=== PATIENT | female | born 1950 | race Caucasian/White ===

== ENCOUNTER → 2018-06-04 11:41 | Outpatient (CLI) | payer MEDICARE, OTHER, SELFPAY ==
--- NOTE | 2018-06-04 | DI.MG.S_ITS ---
BILATERAL DIGITAL SCREENING MAMMOGRAM 3D/2D WITH CAD: 06/04/2018 CLINICAL: Routine screening. Family history of breast cancer. Comparison is made to exams dated: 04/24/2017 mammogram, 04/06/2017 mammogram - [facility], 01/05/2014 mammogram, and 09/03/2012 mammogram - [facility]. There are scattered fibroglandular elements in both breasts. Current study was also evaluated with a Computer Aided Detection (CAD) system. No significant masses, calcifications, or other findings are seen in either breast. There has been no significant interval change. IMPRESSION: NEGATIVE There is no mammographic evidence of malignancy. A 1 year screening mammogram is recommended. This exam was interpreted at Station ID: [id number]. NOTE: For mammograms, a report in lay terms will be sent to the patient. Approximately 15% of breast malignancies will not be visualized mammographically. In the management of a palpable breast mass, a negative mammogram must not discourage biopsy of a clinically suspicious lesion. Electronically Signed By: Parth porras/ruth:06/06/2018 02:57:34 letter sent: Normal Exam ACR BI-RADS Category 1: Negative [id number]
== END ==
PROVIDERS: PCP Family Medicine; Visit Provider Family Medicine
DX: Z12.31 Encounter for screening mammogram for malignant neoplasm of breast (principal); Z80.3 Family history of malignant neoplasm of breast
CPT/HCPCS: 77063; 77067

== ENCOUNTER → 2018-12-16 12:11 | Outpatient (CLI) | payer MEDICARE, OTHER, SELFPAY ==
--- NOTE | 2018-12-16 | DI.CT.S_ITS ---
PROCEDURE: CT HEAD/BRAIN WO CON INDICATIONS: HEAD TRAUMA TECHNIQUE: Noncontrast 4.5 mm thick angled axial sections acquired from the foramen magnum to the vertex, with coronal and sagittal reformats. For radiation dose reduction, the following was used: automated exposure control, adjustment of mA and/or kV according to patient size. COMPARISON: None. FINDINGS: Image quality: Excellent. CSF spaces: Basal cisterns are patent. No extra-axial fluid collections. The ventricles are symmetric in size and shape. Brain: No intracranial bleeds or masses. There is cerebral volume loss for age, with resultant ventricular and sulcal prominence. There are periventricular and deep white matter chronic small vessel ischemic changes. There is intracranial internal carotid artery atherosclerosis. Skull and face: Calvarium and visualized facial bones appear intact, without suspicious lesions. Sinuses: Mild right maxillary sinus disease IMPRESSION: No acute intracranial process. Mild right maxillary sinus disease. Dictated by: Chivo Lovell M.D. on 12/16/2018 at 12:43 Approved by: Chivo Lovell M.D. on 12/16/2018 at 12:49
== END ==
PROVIDERS: PCP Family Medicine; Visit Provider Family Medicine
DX: S09.90XA Unspecified injury of head, initial encounter (principal); J32.0 Chronic maxillary sinusitis; I65.21 Occlusion and stenosis of right carotid artery
CPT/HCPCS: 70450

== ENCOUNTER 2018-12-31 09:00 | Outpatient (RCR) | payer MEDICARE, OTHER, SELFPAY ==
--- NOTE | 2018-12-21 17:25 | PT.OIE ---
Current Diagnoses Tension-type headache, unspecified, not intractable (12/21/18) Concussion without loss of consciousness, initial encounter (12/21/18) Provider Visit Care Team Role Provider Type Desiree Mcghee MD Attending Provider Physician Primary Care Provider Specialty: Family Practice Address: [address] [place] [address], [id number] Email: Physical Therapy Initial Evaluation PT-OP-A Visit Information Start: 12/21/18 12:11 Freq: Status: Active Protocol: Document 12/21/18 13:44 EA (Rec: 12/21/18 14:34 EA [id number]) Out-Patient Physical Therapy Visit Information Visit Information Visit Type Initial Evaluation Visit Start Time 09:45 Visit Stop Time 10:30 Total Visit Minutes 40 Visit Number 1 Number of PACS ADMINISTRATOR Visits 0 PT-OP-B Current Condition Start: 12/21/18 12:11 Freq: Status: Active Protocol: Document 12/21/18 14:34 EA (Rec: 12/21/18 14:58 EA [id number]) Current Condition History of Current Condition Onset Date 2 wks ago Current Complaints Posterior neck pain History of Current Condition Present condition started 2 weeks ago after she slipped and fell backward on the grass field hitting her head on grass; states CT performed with no significant injury. Pt reports pain meds and rest improved her neck a little bit . Pt denies tingling sensation to both arm and no sharp pain but mostly neck tightness. Prior Treatments and Tests Recent CT scan with no significant injury Future Testing and Treatments Planned None identifiable Treatment Goals Patient/Caregiver Goals Pt wants to get rid of the pain and stiffness on the neck and Prior Functional Status Baseline Function- ADL's Independent Baseline Function- Mobility Independent Baseline Function- Gait no limitation Baseline Function- Work/School retired Baseline Function- Recreation/Hobbies No limitation with mobility Current Functional Impairments (Reported) Functional Limitations- ADL's Independent with no difficulty except activities that requires head turning, looking up and down which she c/o decreased tolerance due to neck pain with stiffness and headache. Functional Limitations- Mobility/Gait independent Functional Limitations- Work/School retired Functional Limitations- Recreation/ Decreased tolerance to driving Hobbies , reading, and long distance walking. PT-OP-C Subjective Start: 12/21/18 12:11 Freq: Status: Active Protocol: Document 12/21/18 14:34 EA (Rec: 12/21/18 14:58 EA [id number]) OP-PT Subjective Patient Comments Patient Comments Pt reports neck cracking sounds with no pain increased after the fall. Patient Reported Progress Improving Patient Questionnaires Neck Disability Index NDI Score 12 Neck Disability Index Impairment 20 to 39% Impaired (Score 10- 19) PT-OP-F Manual Assessment Start: 12/21/18 12:11 Freq: Status: Active Protocol: Document 12/21/18 14:34 EA (Rec: 12/21/18 14:58 EA [id number]) Manual Assessments Soft Tissue Assessment Soft Tissue Mobility Assessment Tightness to both scalenes, SCM, LS and postior neck muscles. PT-OP-J Posture/Palpation/Skin Start: 12/21/18 12:11 Freq: Status: Active Protocol: Document 12/21/18 14:34 EA (Rec: 12/21/18 14:58 EA [id number]) Posture Evaluation Position Standing Evaluation View Lateral Head/C-Spine Posture C-Spine Flattened Scapula Posture (L) Protracted (R) Protracted Arm Posture (L) Internally Rotated (R) Internally Rotated Comments Posture Comments Moderate fwd head with decreased cervical lordosis posture Palpation Assessment Location One Palpation Location Posterior neck muscles, sub- occipital mucles, SCM, scalene , traps Palpation Findings Soft Tissue Tightness Tenderness PT-OP-K Range of Motion Start: 12/21/18 12:11 Freq: Status: Active Protocol: Document 12/21/18 14:34 EA (Rec: 12/21/18 14:58 EA [id number]) Cervical Spine Range of Motion Cervical Spine Active Percentage Testing Position Sitting Flexion 85 Extension 75 Rotation Left 75 Rotation Right 75 Lateral Flexion Left 85 Lateral Flexion Right 85 ROM Limitations Soft Tissue Tightness Pain PT-OP-L Special Tests Start: 12/21/18 12:11 Freq: Status: Active Protocol: Document 12/21/18 14:34 EA (Rec: 12/21/18 14:58 EA [id number]) Special Tests Cervical Spine Special Tests Foraminal Compression Test Results - Other- 1 Test Results Cervical quadrant test Comments + facets to left side at C5-C6 Vertebral Artery Test Results - PT-OP-M Strength Start: 12/21/18 12:11 Freq: Status: Active Protocol: Document 12/21/18 14:34 EA (Rec: 12/21/18 14:58 EA [id number]) Cervical Spine Strength Cervical Spine Manual Muscle Testing Testing Position Supine Flexion (C1-2) 4- Good- Extension 3+ Fair+ Rotation Left 4- Good- Rotation Right 4- Good- Lateral Flexion Left (C3) 3+ Fair+ Lateral Flexion Right (C3) 3+ Fair+ PT-OP-Q Treatments Start: 12/21/18 12:11 Freq: Status: Active Protocol: Document 12/21/18 13:44 EA (Rec: 12/21/18 14:34 EA [id number]) Manual Therapy Treatment Soft Tissue Mobilization 1 Body Location posterior neck muscle Mobilization Type Myofascial Release Rolling Sustained Pressure Intensity/Depth Superficial Body Position Supine Manual Traction Cervical Details on/off Body Position Supine Reps/Duration x 10 reps Comments neutral cervical flexion Self-Care/Home Management Treatment Education Patient Education Home Exercise Program Joint Protection Pain Management Posture Safety PT-OP-T Assessment and Plan Start: 12/21/18 12:11 Freq: Status: Active Protocol: Document 12/21/18 13:44 EA (Rec: 12/21/18 14:34 EA [id number]) Physical Therapy Assessment Rehab Potential Rehabilitation Potential Good Evaluation Complexity Number of Personal Factors/Comorbidities 1-2 Number of Body Systems Impaired 1-2 Clinical Presentation at Evaluation Stable Impairments Impairments Activity Tolerance Pain Posture ROM Soft Tissue Mobility Strength Goals Four Impairment impaired psoture Concrete Mixer Goal (LTG) Patient will exhibit near to normal posture LTG Duration 4 wks Three Impairment Sleeping difficulty due to neck discomfort Group Home Goal (LTG) Patient will sleep > 6 hours without neck discomfort LTG Duration 4 wks Two Impairment Moderately difficulty in driving Group Home Goal (LTG) Patient will drive without difficulty in driving her car LTG Duration 4 wks One Impairment NDI score 12/50 Concrete Mixer Goal (LTG) NDI score of <8/50 LTG Duration 4 wks Assessment Summary Assessment Pleasant 68 y/o F patient with no acute distress with referring diagnosis of headache and concussion. Today patient exhibited impaired cervical ROM, cervical muscle weakness, abnormal neck posture and decreased tolerance to activities in standing and sitting. Assessment reveals decreased posterior neck muscles, scalenes, LS and SCM flexibility, left C5-C6 facets joint dysfunction. Due to above mentioned dysfunction, patient is impaired to function fully. She will benefit with skilled PT to reach highest functional level . Physical Therapy Plan Frequency and Duration Frequency of Treatment 2x/Week Duration of Treatment 6 wks Plan of Care Start Date 12/21/18 Plan of Care End Date 02/01/19 Therapeutic Interventions Therapeutic Interventions Home Exercise Program Joint Mobilizations Manual Therapy Patient/Caregiver Education Self-Care/Home Management Soft Tissue Mobilization Taping Therapeutic Activities Therapeutic Exercises Modalities Cold Pack/Ice Massage Electric Stimulation Hot Packs Ultrasound Next Visit Focus/Plan Next Note Type Treatment Note
--- NOTE | 2018-12-21 17:30 | PT.OPPOC ---
Current Diagnoses Tension-type headache, unspecified, not intractable (12/21/18) Concussion without loss of consciousness, initial encounter (12/21/18) Provider Visit Care Team Role Provider Type Desiree Mcghee MD Attending Provider Physician Primary Care Provider Specialty: Family Practice Address: [address] [place] [address], [id number] Email: Plan Of Care PT-OP-T Assessment and Plan Start: 12/21/18 12:11 Freq: Status: Active Protocol: Document 12/21/18 13:44 EA (Rec: 12/21/18 14:34 EA [id number]) Physical Therapy Assessment Rehab Potential Rehabilitation Potential Good Evaluation Complexity Number of Personal Factors/Comorbidities 1-2 Number of Body Systems Impaired 1-2 Clinical Presentation at Evaluation Stable Impairments Impairments Activity Tolerance Pain Posture ROM Soft Tissue Mobility Strength Goals Four Impairment impaired posture Pin Drafting Machine Tender Goal (LTG) Patient will exhibit near to normal posture LTG Duration 4 wks Three Impairment Sleeping difficulty due to neck discomfort Mcfp Goal (LTG) Patient will sleep > 6 hours without neck discomfort LTG Duration 4 wks Two Impairment Moderately difficulty in driving Mcfp Goal (LTG) Patient will drive without difficulty in driving her car LTG Duration 4 wks One Impairment NDI score 12/50 Mcfp Goal (LTG) NDI score of <8/50 LTG Duration 4 wks Assessment Summary Assessment Pleasant 68 y/o F patient with no acute distress with referring diagnosis of headache and concussion. Today patient exhibited impaired cervical ROM, cervical muscle weakness, abnormal neck posture and decreased tolerance to activities in standing and sitting. Assessment reveals decreased posterior neck muscles, scalenes, LS and SCM flexibility, left C5-C6 facets joint dysfunction. Due to above mentioned dysfunction, patient is impaired to function fully. She will benefit with skilled PT to reach highest functional level . Physical Therapy Plan Frequency and Duration Frequency of Treatment 2x/Week Duration of Treatment 6 wks Plan of Care Start Date 12/21/18 Plan of Care End Date 02/01/19 Therapeutic Interventions Therapeutic Interventions Home Exercise Program Joint Mobilizations Manual Therapy Patient/Caregiver Education Self-Care/Home Management Soft Tissue Mobilization Taping Therapeutic Activities Therapeutic Exercises Modalities Cold Pack/Ice Massage Electric Stimulation Hot Packs Ultrasound Next Visit Focus/Plan Next Note Type Treatment Note Plan of Care Dates Plan of Care Start Date 12/21/18 Plan of Care End Date 02/01/19 Please Sign and Return: I have reviewed this Plan of Care and certify that the skilled therapy services above are required to meet the patient?s needs. Physician Signature Date Printed Name and Credentials Clinical Instructor Signature Printed Name and Credentials
--- NOTE | 2018-12-23 15:30 | PT.OTN ---
Current Diagnoses Tension-type headache, unspecified, not intractable (12/23/18) Concussion without loss of consciousness, initial encounter (12/23/18) Physical Therapy Treatment Note PT-OP-A Visit Information Start: 12/21/18 12:11 Freq: Status: Active Protocol: Document 12/23/18 09:51 LRN (Rec: 12/23/18 10:34 LRN [id number]) Out-Patient Physical Therapy Visit Information Visit Information Visit Type Treatment Note Visit Start Time 09:51 Visit Stop Time 10:30 Total Visit Minutes 39 Visit Number 2 Number of AUTOMOTIVE PARTS COUNTER ASSOCIATE Visits 0 PT-OP-B Current Condition Start: 12/21/18 12:11 Freq: Status: Active Protocol: Document 12/21/18 14:34 EA (Rec: 12/21/18 14:58 EA [id number]) Current Condition History of Current Condition Onset Date 2 wks ago Current Complaints Posterior neck pain History of Current Condition Present condition started 2 weeks ago after she slipped and fell backward on the grassfield hitting her head on grass; states CT performed with no significant injury. Pt reports pain meds and rest improved her neck a little bit . Pt denies tingling sensation to both arm and no sharp pain but mostly neck tightness. Prior Treatments and Tests Recent CT scan with no significant injury Future Testing and Treatments Planned None identifiable Treatment Goals Patient/Caregiver Goals Pt wants to get rid of the pain and stiffness on the neck and Prior Functional Status Baseline Function- ADL's Independent Baseline Function- Mobility Independent Baseline Function- Gait no limitation Baseline Function- Work/School retired Baseline Function- Recreation/Hobbies No limitation with mobility Current Functional Impairments (Reported) Functional Limitations- ADL's Independent with no difficulty except activities that requires head turning, looking up and down which she c/o decreased tolerance due to neck pain with stiffness and headache. Functional Limitations- Mobility/Gait independent Functional Limitations- Work/School retired Functional Limitations- Recreation/ Decreased tolerance to driving Hobbies , reading, and long distance walking. PT-OP-C Subjective Start: 12/21/18 12:11 Freq: Status: Active Protocol: Document 12/23/18 09:51 LRN (Rec: 12/23/18 10:06 LRN [id number]) OP-PT Subjective Patient Comments Patient Comments Better. PT-OP-F Manual Assessment Start: 12/21/18 12:11 Freq: Status: Active Protocol: Document 12/21/18 14:34 EA (Rec: 12/21/18 14:58 EA [id number]) Manual Assessments Soft Tissue Assessment Soft Tissue Mobility Assessment Tightness to both scalenes, SCM, LS and postior neck muscles. PT-OP-J Posture/Palpation/Skin Start: 12/21/18 12:11 Freq: Status: Active Protocol: Document 12/21/18 14:34 EA (Rec: 12/21/18 14:58 EA [id number]) Posture Evaluation Position Standing Evaluation View Lateral Head/C-Spine Posture C-Spine Flattened Scapula Posture (L) Protracted (R) Protracted Arm Posture (L) Internally Rotated (R) Internally Rotated Comments Posture Comments Moderate fwd head with decreased cervical lordosis posture Palpation Assessment Location One Palpation Location Posterior neck muscles, sub- occipital mucles, SCM, scalene , traps Palpation Findings Soft Tissue Tightness Tenderness PT-OP-K Range of Motion Start: 12/21/18 12:11 Freq: Status: Active Protocol: Document 12/21/18 14:34 EA (Rec: 12/21/18 14:58 EA [id number]) Cervical Spine Range of Motion Cervical Spine Active Percentage Testing Position Sitting Flexion 85 Extension 75 Rotation Left 75 Rotation Right 75 Lateral Flexion Left 85 Lateral Flexion Right 85 ROM Limitations Soft Tissue Tightness Pain PT-OP-L Special Tests Start: 12/21/18 12:11 Freq: Status: Active Protocol: Document 12/21/18 14:34 EA (Rec: 12/21/18 14:58 EA [id number]) Special Tests Cervical Spine Special Tests Foraminal Compression Test Results - Other- 1 Test Results Cervical quadrant test Comments + facets to left side at C5-C6 Vertebral Artery Test Results - PT-OP-M Strength Start: 12/21/18 12:11 Freq: Status: Active Protocol: Document 12/21/18 14:34 EA (Rec: 12/21/18 14:58 EA [id number]) Cervical Spine Strength Cervical Spine Manual Muscle Testing Testing Position Supine Flexion (C1-2) 4- Good- Extension 3+ Fair+ Rotation Left 4- Good- Rotation Right 4- Good- Lateral Flexion Left (C3) 3+ Fair+ Lateral Flexion Right (C3) 3+ Fair+ PT-OP-Q Treatments Start: 12/21/18 12:11 Freq: Status: Active Protocol: Document 12/23/18 09:51 LRN (Rec: 12/23/18 10:34 LRN [id number]) Therapeutic Exercises Supine Exercises PROM shoulders Supine Exercise Name PROM of shoulders Side bilateral Reps/Minutes 3' Sitting Exercises C. Flex Sitting Exercise Name Flexion Reps/Minutes 6x 10 sec holds C. rot Sitting Exercise Name Active C. rot stretch Side bilateral Reps/Minutes 6x 10 sec hold Manual Therapy Treatment Soft Tissue Mobilization 1 Body Location posterior neck muscle Mobilization Type Myofascial Release Rolling Sustained Pressure Intensity/Depth Superficial Body Position Supine Comments L>R Manual Traction Cervical Details on/off Body Position Supine Reps/Duration x 10 reps Comments neutral cervical flexion, SB PT-OP-R Modalities Start: 12/21/18 12:11 Freq: Status: Active Protocol: Document 12/23/18 09:51 LRN (Rec: 12/23/18 10:34 LRN [id number]) Ultrasound Therapy Treatment Neck/Shoulder Treatment Duration (minutes) 8 Patient Position Prone Coupling Medium Ultrasound Gel Applicator Size (cm2) 5 Mode Setting Pulsed Duty Cycle 50% Intensity Setting (w/cm2) 1.5 Comments Tonny C/S paraspinals and upper trap PT-OP-T Assessment and Plan Start: 12/21/18 12:11 Freq: Status: Active Protocol: Document 12/23/18 09:51 LRN (Rec: 12/23/18 13:29 LRN [id number]) Physical Therapy Assessment Assessment Summary Assessment Pt with referring diagnosis of headache and concussion with mild impaired cervical ROM, cervical muscle weakness, improved neck posture and decreased tolerance to activities in standing and sitting. Prior assessment showed decreased posterior neck muscles, scalenes, LS and SCM flexibility, but improved mobility noted with ROM exercises. Left C5-C6 facets joint dysfunction not reassessed. If pain is down, might start ex next treatment. Physical Therapy Plan Frequency and Duration Frequency of Treatment 2x/Week Duration of Treatment 6 wks Plan of Care Start Date 12/21/18 Plan of Care End Date 02/01/19 Next Visit Focus/Plan Next Note Type Treatment Note Next Visit Plan Continue US to neck/upper shoulders, manual therapy to C /S, Cervical ROM. Start strengthening if pain remains down.
--- NOTE | 2018-12-31 09:00 | PT.OTN ---
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 Pt reports pain meds and rest improved her neck a little bit . Pt denies tingling sensation to both arm and no sharp pain but mostly neck tightness. Prior Treatments and Tests Recent CT scan with no significant injury Future Testing and Treatments Planned None identifiable Treatment Goals Patient/Caregiver Goals Pt wants to get rid of the pain and stiffness on the neck and Prior Functional Status Baseline Function- ADL's Independent Baseline Function- Mobility Independent Baseline Function- Gait no limitation Baseline Function- Work/School retired Baseline Function- Recreation/Hobbies No limitation with mobility Current Functional Impairments (Reported) Functional Limitations- ADL's Independent with no difficulty except activities that requires head turning, looking up and down which she c/o decreased tolerance due to neck pain with stiffness and headache. Functional Limitations- Mobility/Gait independent Functional Limitations- Work/School retired Functional Limitations- Recreation/ Decreased tolerance to driving Hobbies , reading, and long distance walking. PT-OP-C Subjective Start: 12/21/18 12:11 Freq: Status: Active Protocol: Document 12/31/18 09:00 RCC (Rec: 12/31/18 16:32 RCC [email or web address]) OP-PT Subjective Patient Comments Patient Comments Pt feels like the only time her neck pain is aggravated is when her dog pulls her on the leash. Overall, she is much improved and working on her HEP PT-OP-F Manual Assessment Start: 12/21/18 12:11 Freq: Status: Active Protocol: Document 12/21/18 14:34 EA (Rec: 12/21/18 14:58 EA [id number]) Manual Assessments Soft Tissue Assessment Soft Tissue Mobility Assessment Tightness to both scalenes, SCM, LS and postior neck muscles. PT-OP-J Posture/Palpation/Skin Start: 12/21/18 12:11 Freq: Status: Active Protocol: Document 12/21/18 14:34 EA (Rec: 12/21/18 14:58 EA [id number]) Posture Evaluation Position Standing Evaluation View Lateral Head/C-Spine Posture C-Spine Flattened Scapula Posture (L) Protracted (R) Protracted Arm Posture (L) Internally Rotated (R) Internally Rotated Comments Posture Comments Moderate fwd head with decreased cervical lordosis posture Palpation Assessment Location One Palpation Location Posterior neck muscles, sub- occipital mucles, SCM, scalene , traps Palpation Findings Soft Tissue Tightness Tenderness PT-OP-K Range of Motion Start: 12/21/18 12:11 Freq: Status: Active Protocol: Document 12/21/18 14:34 EA (Rec: 12/21/18 14:58 EA [id number]) Cervical Spine Range of Motion Cervical Spine Active Percentage Testing Position Sitting Flexion 85 Extension 75 Rotation Left 75 Rotation Right 75 Lateral Flexion Left 85 Lateral Flexion Right 85 ROM Limitations Soft Tissue Tightness Pain PT-OP-L Special Tests Start: 12/21/18 12:11 Freq: Status: Active Protocol: Document 12/21/18 14:34 EA (Rec: 12/21/18 14:58 EA [id number]) Special Tests Cervical Spine Special Tests Foraminal Compression Test Results - Other- 1 Test Results Cervical quadrant test Comments + facets to left side at C5-C6 Vertebral Artery Test Results - PT-OP-M Strength Start: 12/21/18 12:11 Freq: Status: Active Protocol: Document 12/21/18 14:34 EA (Rec: 12/21/18 14:58 EA [id number]) Cervical Spine Strength Cervical Spine Manual Muscle Testing Testing Position Supine Flexion (C1-2) 4- Good- Extension 3+ Fair+ Rotation Left 4- Good- Rotation Right 4- Good- Lateral Flexion Left (C3) 3+ Fair+ Lateral Flexion Right (C3) 3+ Fair+ PT-OP-Q Treatments Start: 12/21/18 12:11 Freq: Status: Active Protocol: Document 12/31/18 09:00 [facility] (Rec: 12/31/18 16:32 [facility] [id number]) Therapeutic Exercises Sitting Exercises levator and UT stretching Side left Reps/Minutes 3x30 sec each Comments sitting on hand C. Flex Sitting Exercise Name Flexion Reps/Minutes 6x 10 sec holds C. rot Sitting Exercise Name Active C. rot stretch Side bilateral Reps/Minutes 6x 10 sec hold Standing Exercises Scapular retraction Side bilateral Resistance L2 band Reps/Minutes x30 Comments tactile and verbal cuing for UT inhibition chin tuck Side bilateral Reps/Minutes 3 min Other Exercises standing posture Reps/Minutes 5 min Comments standing posture with chin tuck, shoulder positioning, TA activation PT-OP-R Modalities Start: 12/21/18 12:11 Freq: Status: Active Protocol: Document 12/31/18 09:00 [facility] (Rec: 12/31/18 16:32 [facility] [id number]) Ultrasound Therapy Treatment Neck/Shoulder Treatment Duration (minutes) 8 Patient Position Prone Coupling Medium Ultrasound Gel Applicator Size (cm2) 5 Mode Setting Pulsed Duty Cycle 50% Intensity Setting (w/cm2) 1.5 Comments Tonny C/S paraspinals and upper trap PT-OP-T Assessment and Plan Start: 12/21/18 12:11 Freq: Status: Active Protocol: Document 12/31/18 09:00 [facility] (Rec: 12/31/18 16:32 [facility] [id number]) Physical Therapy Assessment Assessment Summary Assessment Pt improving with treatment, responded well to US last visit and her ROM is improving with rotation near normal ranges. Pt did have excessive activation of the L UT in standing initially, but able to correct initially requiring verbal and tactile cuing to indep at end of session. Physical Therapy Plan Frequency and Duration Frequency of Treatment 2x/Week Duration of Treatment 6 wks Plan of Care Start Date 12/21/18 Plan of Care End Date 02/01/19 Next Visit Focus/Plan Next Note Type Treatment Note Next Visit Plan cont to advance scapular strengthening, stabilization of upper body and postural mm
--- NOTE | 2019-02-07 09:32 | PT.OPDS ---
Current Diagnoses Tension-type headache, unspecified, not intractable (12/31/18) Concussion without loss of consciousness, initial encounter (12/31/18) Provider Visit Care Team Role Provider Type Desiree Mcghee MD Attending Provider Physician Primary Care Provider Specialty: Family Practice Address: [address] [place] [address], [id number] Email: Visit Number Visit Number 3 Discharge Summary PT-OP-B Current Condition Start: 12/21/18 12:11 Freq: Status: Active Protocol: Document 12/21/18 14:34 EA (Rec: 12/21/18 14:58 EA [id number]) Current Condition History of Current Condition Onset Date 2 wks ago Current Complaints Posterior neck pain History of Current Condition Present condition started 2 weeks ago after she slipped and fell backward on the grassfield hitting her head on grass; states CT performed with no significant injury. Pt reports pain meds and rest improved her neck a little bit . Pt denies tingling sensation to both arm and no sharp pain but mostly neck tightness. Prior Treatments and Tests Recent CT scan with no significant injury Future Testing and Treatments Planned None identifiable Treatment Goals Patient/Caregiver Goals Pt wants to get rid of the pain and stiffness on the neck and Prior Functional Status Baseline Function- ADL's Independent Baseline Function- Mobility Independent Baseline Function- Gait no limitation Baseline Function- Work/School retired Baseline Function- Recreation/Hobbies No limitation with mobility Current Functional Impairments (Reported) Functional Limitations- ADL's Independent with no difficulty except activities that requires head turning, looking up and down which she c/o decreased tolerance due to neck pain with stiffness and headache. Functional Limitations- Mobility/Gait independent Functional Limitations- Work/School retired Functional Limitations- Recreation/ Decreased tolerance to driving Hobbies , reading, and long distance walking. PT-OP-C Subjective Start: 12/21/18 12:11 Freq: Status: Active Protocol: Document 02/07/19 09:31 EA (Rec: 02/07/19 09:32 EA [id number]) OP-PT Subjective Patient Comments Patient Comments by phone today, patient reports that I'm all well now. Patient agreeable to discharge in skilled PT. PT-OP-F Manual Assessment Start: 12/21/18 12:11 Freq: Status: Active Protocol: Document 12/21/18 14:34 EA (Rec: 12/21/18 14:58 EA [id number]) Manual Assessments Soft Tissue Assessment Soft Tissue Mobility Assessment Tightness to both scalenes, SCM, LS and postior neck muscles. PT-OP-J Posture/Palpation/Skin Start: 12/21/18 12:11 Freq: Status: Active Protocol: Document 12/21/18 14:34 EA (Rec: 12/21/18 14:58 EA [id number]) Posture Evaluation Position Standing Evaluation View Lateral Head/C-Spine Posture C-Spine Flattened Scapula Posture (L) Protracted (R) Protracted Arm Posture (L) Internally Rotated (R) Internally Rotated Comments Posture Comments Moderate fwd head with decreased cervical lordosis posture Palpation Assessment Location One Palpation Location Posterior neck muscles, sub- occipital mucles, SCM, scalene , traps Palpation Findings Soft Tissue Tightness Tenderness PT-OP-K Range of Motion Start: 12/21/18 12:11 Freq: Status: Active Protocol: Document 12/21/18 14:34 EA (Rec: 12/21/18 14:58 EA [id number]) Cervical Spine Range of Motion Cervical Spine Active Percentage Testing Position Sitting Flexion 85 Extension 75 Rotation Left 75 Rotation Right 75 Lateral Flexion Left 85 Lateral Flexion Right 85 ROM Limitations Soft Tissue Tightness Pain PT-OP-L Special Tests Start: 12/21/18 12:11 Freq: Status: Active Protocol: Document 12/21/18 14:34 EA (Rec: 12/21/18 14:58 EA [id number]) Special Tests Cervical Spine Special Tests Foraminal Compression Test Results - Other- 1 Test Results Cervical quadrant test Comments + facets to left side at C5-C6 Vertebral Artery Test Results - PT-OP-M Strength Start: 12/21/18 12:11 Freq: Status: Active Protocol: Document 12/21/18 14:34 EA (Rec: 12/21/18 14:58 EA [id number]) Cervical Spine Strength Cervical Spine Manual Muscle Testing Testing Position Supine Flexion (C1-2) 4- Good- Extension 3+ Fair+ Rotation Left 4- Good- Rotation Right 4- Good- Lateral Flexion Left (C3) 3+ Fair+ Lateral Flexion Right (C3) 3+ Fair+ PT-OP-T Assessment and Plan Start: 12/21/18 12:11 Freq: Status: Active Protocol: Document 02/07/19 09:31 EA (Rec: 02/07/19 09:32 EA [id number]) Physical Therapy Assessment Assessment Summary Assessment Patient is discharge upon request. Patient is recovered upon discharge. Physical Therapy Plan Discharge Physical Therapy Discharge Reasons Patient Request
== END 2019-02-07 15:11 | disposition home or self-care (01) ==
LOC: PHYS 09:00
PROVIDERS: PCP Family Medicine; Visit Provider Family Medicine
DX: G44.209 Tension-type headache, unspecified, not intractable (principal); S06.0X0A Concussion without loss of consciousness, initial encounter
CPT/HCPCS: 97035; 97110; 97140; 97161; 97535

== ENCOUNTER → 2019-07-11 11:11 | Outpatient (CLI) | payer MEDICARE, OTHER, SELFPAY ==
--- NOTE | 2019-07-11 | DI.MG.S_ITS ---
BILATERAL DIGITAL SCREENING MAMMOGRAM 3D/2D WITH CAD: 07/11/2019 CLINICAL: Routine screening. Family history of breast cancer. Comparison is made to exams dated: 06/04/2018 mammogram, 04/06/2017 mammogram, 04/24/2017 mammogram - [facility], 01/05/2014 mammogram, and 09/03/2012 mammogram - [facility]. There are scattered fibroglandular elements in both breasts. Current study was also evaluated with a Computer Aided Detection (CAD) system. No significant masses, calcifications, or other findings are seen in either breast. There has been no significant interval change. IMPRESSION: NEGATIVE There is no mammographic evidence of malignancy. A 1 year screening mammogram is recommended. This exam was interpreted at Station ID: [id number]. NOTE: For mammograms, a report in lay terms will be sent to the patient. Approximately 15% of breast malignancies will not be visualized mammographically. In the management of a palpable breast mass, a negative mammogram must not discourage biopsy of a clinically suspicious lesion. Electronically Signed By: Edil thrasher/ruth:07/11/2019 17:40:45 letter sent: Normal Exam ACR BI-RADS Category 1: Negative 3341F
== END ==
PROVIDERS: PCP Family Medicine; Visit Provider Family Medicine
DX: Z12.31 Encounter for screening mammogram for malignant neoplasm of breast (principal); Z80.3 Family history of malignant neoplasm of breast
CPT/HCPCS: 77063; 77067

== ENCOUNTER → 2020-01-20 14:45 | Outpatient (CLI) | payer OTHER, SELFPAY | PROVIDERS: PCP Family Medicine; Referring Provider Family Medicine; Visit Provider Family Medicine | DX: Z13.820 Encounter for screening for osteoporosis (principal); M85.851 Other specified disorders of bone density and structure, right thigh; Z78.0 Asymptomatic menopausal state; E11.9 Type 2 diabetes mellitus without complications; Z82.62 Family history of osteoporosis | CPT/HCPCS: 77080 ==

== ENCOUNTER 2020-04-15 09:44 | Emergency (ER) | payer OTHER, SELFPAY ==
[2020-04-15 10:03] VITALS: BP 151/80; PULSE 79; RESP 16; TEMP 36.7; O2SAT 98; BMI 24.0
--- NOTE | 2020-04-15 10:37 | ED.HEATRA ---
HPI - Head Injury General Chief complaint: Head Injury Stated complaint: walk in clinic sent- CT Time Seen by Provider: 04/15/20 10:26 Source: patient Mode of arrival: Ambulatory Limitations: no limitations History of Present Illness HPI Narrative: Patient is 69-year-old female who fell and hit her head 2 days ago. She woke up in the middle of the night tripped over the dog and hit her head. There was no loss of consciousness she is not on any anti-platelet or anticoagulation medication. She had no nausea vomiting or weakness. She has been doing well until this morning when she woke up and had right eye contusion. She hit her forehead on the right side there is no swelling there. She denies any blurry vision or double vision. She says that her thinking is a little bit foggy but really denies having any headache. Complaint: head injury Onset (ago): day(s) Place: home Loss of Consciousness: no Location of injury: frontal Severity: mild Related Data Home Medications Medication Instructions Recorded Confirmed MULTIVITAMIN (#MULTIPLE VITAMINS) 1 cap PO Q DAY #0 09/10/11 Metformin Hydrochloride 850 mg PO BID #0 09/10/11 (#GLUCOPHAGE) VITAMIN B COMPLEX 1 cap PO Q DAY #0 09/10/11 [COQ10] 1 PO Q DAY #0 09/10/11 aspirin 81 mg PO QDAY #0 02/28/13 Previous Rx's Medication Instructions Recorded Pravastatin Sodium (#PRAVACHOL) 20 mg PO HS #90 08/13/12 MEPERIDINE HYDROCHLORIDE (DEMEROL) 50 mg PO Q4HP #14 03/25/13 Allergies Allergy/AdvReac Type Severity Reaction Status Date / Time codeine [CODEINE] AdvReac Mild HEADACHES Unverified 11/18/17 11:53 Review of Systems Review of Systems Narrative: GENERAL: Denies chills, fatigue, malaise, fever, sweats, travel HEENT: Denies sinus pain, ear pain, sore throat, difficulty swallowing, neck pain RESPIRATORY: Denies dyspnea, cough, wheezing, hemoptysis, sputum. CARDIOVASCULAR: Denies chest pain, palpitations, orthopnea, edema GASTROINTESTINAL: Denies nausea, vomiting, abdominal pain, diarrhea, constipation, melena. : Denies dysuria, frequency, incontinence, hematuria, urinary retention, flank pain. MUSCULOSKELETAL: Denies weakness, joint pain, or bony pain SKIN: No rash, no erythema, no pruritus NEUROLOGIC: See HPI PSYCHIATRIC: No concerning psychosocial issues. 12 point review of systems is negative except for those stated above and HPI Patient History Social History Smoking Status: Never smoker Smoking Status: Never smoker alcohol intake frequency: 0-2 drinks per day Substance Use Type: does not use Exam Initial Vital Signs Initial Vital Signs: Vital Signs Temperature 98.0 F 04/15/20 10:03 Pulse Rate 79 04/15/20 10:03 Respiratory Rate 16 04/15/20 10:03 Blood Pressure 151/80 H 04/15/20 10:03 Pulse Oximetry 98 04/15/20 10:03 GENERAL: Well-appearing, well-nourished and in no acute distress. HEENT: Head atraumatic no depressions or crepitation,EOMI, pupils reactive, face symmetric, moist mucous membranes CARDIOVASCULAR: Regular rate and rhythm without murmurs, rubs or gallops. RESPIRATORY: Breath sounds equal bilaterally, no wheezes rales or rhonchi. ABDOMEN: Soft, nontender. Normoactive bowel sounds all 4 quadrants. No guarding or rebound. EXTREMITIES: Normal range of motion, no clubbing or edema. Neurovascularly intact NEUROLOGICAL: Alert and oriented x4.Normal gait and speech. Departmental Shipping Clerk strength equal bilaterally SKIN: Right periorbital contusion mild contusion on Course Orders Ordered: ED Orders 04/15/20 10:37 CT head/brain wo con Stat Vital Signs Vital signs: Vital Signs - 8 hr 04/15/20 10:03 04/15/20 11:30 Temperature 98.0 F Pulse Rate 79 66 Respiratory Rate 16 18 Blood Pressure 151/80 H 140/67 Pulse Oximetry 98 98 MDM - Head Injury Imaging Data CT scan - head: Radiologist's Impression: PROCEDURE: CT HEAD/BRAIN WO CON INDICATIONS: fall 3 days ago TECHNIQUE: Noncontrast 4.5 mm thick angled axial sections acquired from the foramen magnum to the vertex, with coronal and sagittal reformats. For radiation dose reduction, the following was used: automated exposure control, adjustment of mA and/or kV according to patient size. COMPARISON: [facility], CT, SINUS WITHOUT CONTRAST, 11/07/2011, 15:10. [facility], CT, CT HEAD/BRAIN WO CON, 12/16/2018, 12:21. FINDINGS: Image quality: Excellent. CSF spaces: Basal cisterns are patent. No extra-axial fluid collections. The ventricles are symmetric in size and shape. Brain: No intracranial bleeds or masses. There is cerebral volume loss for age, with resultant ventricular and sulcal prominence. There are periventricular and deep white matter chronic small vessel ischemic changes. There is intracranial internal carotid artery atherosclerosis. Skull and face: Calvarium and visualized facial bones appear intact, without suspicious lesions. Sinuses: Moderate mucosal thickening is again seen within the right maxillary sinus. Portions of the medial wall of the right maxillary sinus have been removed. IMPRESSION: No acute intracranial hemorrhage is seen. Unremarkable intracranial study for age. Stable from prior. Focal right maxillary sinus disease, with prior sinus surgery. Dictated by: Ghassan Hamilton M.D. on 04/15/2020 at 10:08 Approved by: Ghassan Hamilton M.D. on 04/15/2020 at 10:1 Discharge Plan Departure Patient Disposition: Home Clinical Impression: Closed head injury Qualifiers: Encounter type: initial encounter Qualified Code(s): S09.90XA - Unspecified injury of head, initial encounter Discharge Date/Time: 04/15/20 11:30 Instructions: DI for Closed Head Injury Activity Restrictions/Additional Instructions: *You have been diagnosed with close head injury *What to do: Bruising on your right eye is likely from her recent head injury. Your CT scan is negative. No sign of internal bleeding. You may have a mild concussion *Continue to take medications as directed Tylenol 650 mg every 4 6 hours if needed [id number] pain *Follow up with your primary care provider in 2-3 days *Return to ER if you should have worsening headache persistent vomiting, weakness, confusion or any new, worsening or concerning symptoms Prescriptions: No Action Metformin Hydrochloride (#GLUCOPHAGE) 850 mg PO BID Qty: 0 RF: 0 MULTIVITAMIN (#MULTIPLE VITAMINS) 1 cap PO Q DAY Qty: 0 RF: 0 VITAMIN B COMPLEX 1 cap PO Q DAY Qty: 0 RF: 0 [COQ10] 1 PO Q DAY Qty: 0 RF: 0 Pravastatin Sodium (#PRAVACHOL) 20 mg PO HS Qty: 90 RF: 3 aspirin 81 MG tablet,delayed release (DR/EC) 81 mg PO QDAY Qty: 0 RF: 0 MEPERIDINE HYDROCHLORIDE (DEMEROL) 50 mg PO Q4HP Qty: 14 RF: 0 Referrals: Desiree Mcghee MD [Primary Care Provider] -
--- NOTE | 2020-04-15 11:17 | PC.NURSE ---
sbar recived pt sitting up in chair no distress noted none stated pending results of ct for dispo pt updated on poc
[2020-04-15 11:30] VITALS: BP 140/67; PULSE 66; RESP 18; O2SAT 98
== END 2020-04-15 11:30 | disposition home or self-care (01) ==
PROVIDERS: Emergency Provider Emergency Medicine; PCP Family Medicine
DX: S09.90XA Unspecified injury of head, initial encounter (principal); W01.198A Fall on same level from slipping, tripping and stumbling with subsequent striking against other object, initial encounter
CPT/HCPCS: 70450; 99283; 99284

== ENCOUNTER → 2020-08-09 15:01 | Outpatient (CLI) | payer OTHER, SELFPAY ==
--- NOTE | 2020-08-09 | DI.MG.S_ITS ---
BILATERAL DIGITAL SCREENING MAMMOGRAM 3D/2D WITH CAD: 08/09/2020 CLINICAL: Routine screening. Family history of breast cancer. Comparison is made to exams dated: 07/11/2019 mammogram, 06/04/2018 mammogram, and 04/06/2017 mammogram - [facility]. There are scattered fibroglandular elements in both breasts. Current study was also evaluated with a Computer Aided Detection (CAD) system. No significant masses, calcifications, or other findings are seen in either breast. There has been no significant interval change. IMPRESSION: NEGATIVE There is no mammographic evidence of malignancy. A 1 year screening mammogram is recommended. This exam was interpreted at Station ID: [id number]. NOTE: For mammograms, a report in lay terms will be sent to the patient. Approximately 15% of breast malignancies will not be visualized mammographically. In the management of a palpable breast mass, a negative mammogram must not discourage biopsy of a clinically suspicious lesion. Electronically Signed By: Edil thrasher/ruth:08/09/2020 16:31:41 letter sent: Normal Exam ACR BI-RADS Category 1: Negative 3341F
== END ==
PROVIDERS: PCP Family Medicine; Referring Provider Family Medicine; Visit Provider Family Medicine
DX: Z12.31 Encounter for screening mammogram for malignant neoplasm of breast (principal); Z80.3 Family history of malignant neoplasm of breast
CPT/HCPCS: 77063; 77067

== ENCOUNTER → 2021-06-08 11:54 | Outpatient (CLI) | payer OTHER, SELFPAY ==
--- NOTE | 2021-06-08 11:57 | DI.RAD.S_ITS ---
PROCEDURE: XR ELBOW LT MIN 3V INDICATIONS: s/p elbow TECHNIQUE: 3 views of the elbow were acquired. COMPARISON: None. FINDINGS: Bones: There is a nondisplaced radial neck fracture. No additional fractures. Small insertional spurs are noted at the medial and lateral epicondyle as well as the triceps insertion of the olecranon. Mild degenerative changes of the ulnotrochlear joint. Soft tissues: Small to moderate joint effusion. No suspicious soft tissue calcifications. IMPRESSION: Nondisplaced radial neck fracture with small to moderate joint effusion. Small enthesophytes are noted at the medial and lateral epicondyle as well as the triceps insertion of the olecranon. Dictated by: Anand Moya D.O. on 06/08/2021 at 11:41 Approved by: Anand Moya D.O. on 06/08/2021 at 11:43
== END ==
PROVIDERS: PCP Family Medicine; Referring Provider Physician Assistant; Visit Provider Physician Assistant
DX: S52.135A Nondisplaced fracture of neck of left radius, initial encounter for closed fracture (principal); W19.XXXA Unspecified fall, initial encounter
CPT/HCPCS: 73080

== ENCOUNTER → 2021-12-11 09:03 | Outpatient (CLI) | payer OTHER, SELFPAY ==
--- NOTE | 2021-12-11 09:52 | DIAB.INIT ---
Initial Diabetes Education Assessment Name: Sarah Beth Amin Date: 12/11/21 Time: 810-579a Dx: Type II Diabetes Provider: Taz Sarah Beth presents today for training on Trulicity. States she has had consistently elevated FBG in the 190-200 mg/dL, and though most readings later in the day are in range (100-150 mg/dL) she has experienced 200s on occasion. Additionally, she normally does not check pc readings. Sarah Beth seems very motivated to start Trulicity. Has some questions regarding potential for lows. Currently disposing of sharps in garbage. Endorses being conscious of her food. Does have some questions regarding pasta types. Tries to stay active, ie gardening. Endorses some recent wt gain. Anthropometrics: Wt: 152.8# last PCP visit Weight history: reported UBW 144# Diabetes Medications: Trulicity 0.75 ng weekly (has not started, waiting on pharmacy) Glipizide 10mg BID (plans to reduce am dose by half after starting GLP1 RA) Metformin 1000mg BID Pertinent Labs: 11/25/21: HgA1c per referral 7.7% H Past Medical History: Per referral: T2DM, HTN, vit D deficiency Intervention: This participant was very receptive. Provided appropriate educational handouts. Discussed the following topics: Review of BG trends GLP1RA use, action, and disposal How to inject, where to inject Benefits to heart, BG, and wt Lancet disposal Nutrition: different pasta types and recs SMBG: low blood sugar, though low risk with GLP1 Pathophysiology: carlotta phenomenon, progression of DM Goals: Start Trulicity Dispose of sharps properly Follow-up: BEBETO ROBLEDO follow-up prn. Provided my card for any questions, concerns, or follow-up needs. She agreed to this plan. Lucila Cornjeo, BEBETO, [facility] Certified Diabetes Care and Rn New Graduate P: [phone] Thank you for this referral
== END ==
PROVIDERS: PCP Family Medicine; Referring Provider Family Medicine; Visit Provider Family Medicine
DX: E11.9 Type 2 diabetes mellitus without complications (principal); Z79.84 Long term (current) use of oral hypoglycemic drugs; Z79.899 Other long term (current) drug therapy; Z71.3 Dietary counseling and surveillance
CPT/HCPCS: G0108

== ENCOUNTER → 2022-01-07 15:23 | Outpatient (CLI) | payer OTHER, SELFPAY ==
[2022-01-07 15:53] LABS: Add Manual Diff / Slide Review NO; Basophils Absolute Auto 100 /uL (0-100); Basophils Percent Auto 0.8 % (0-2); Eosinophils Absolute Auto 300 /uL (0-450); Eosinophils Percent Auto 3.1 % (2-4); Hematocrit 40.6 % (36-46); Lymphocytes Absolute Auto 2400 /uL (1100-4500); Lymphocytes Percent Auto 30.2 % (25-40); Mean Corpuscular HGB Conc 34.5 % (30-36); Mean Corpuscular Hemoglobin 29.9 PG (26-34); Mean Corpuscular Volume 86.6 fL (80-100); Monocytes Absolute Auto 500 /uL (0-900); Monocytes Percent Auto 6.6 % (3-14); Neutrophils Absolute Auto 4800 /uL (1500-7000); Neutrophils Percent Auto 59.3 % (50-75); Platelet Count 277 X10^3/uL (150-400); Red Blood Cell Count 4.69 X10^6/uL (4.0-5.2); Red Cell Distribution Width 13.5 % (11.6-14.8); White Blood Cell Count 8.1 X10^3/uL (4.5-11.0)
[2022-01-07 16:09] LABS: Alanine Aminotransferase 27 IU/L (<35); Albumin 4.5 g/dL (3.5-5.0); Albumin Globulin Ratio 1.7 (1.0-2.8); Alkaline Phosphatase 80 U/L (38-126); Amylase 105 U/L (30-110); Aspartate Aminotransferase 26 IU/L (14-36); BUN Creatinine Ratio 22.5 (6-22); Bilirubin Total 0.2 mg/dL (0.2-1.3); Blood Urea Nitrogen 16 mg/dL (7-17); Calcium 9.6 mg/dL (8.4-10.2); Carbon Dioxide 25 mmol/L (22-32); Chloride 101 mmol/L (98-107); Estimated Glomerular Filt Rate > 60 mL/min (>60); Globulin 2.7 g/dL (1.7-4.1); Glucose 183 mg/dL (80-110); HEMOLYSIS < 15 (0-50); Lipase 186 U/L (23-300); Potassium 4.1 mmol/L (3.4-5.1); Sodium 137 mmol/L (137-145); Total Protein 7.2 g/dL (6.3-8.2)
== END ==
PROVIDERS: PCP Family Medicine; Referring Provider Family Medicine; Visit Provider Family Medicine
DX: E11.43 Type 2 diabetes mellitus with diabetic autonomic (poly)neuropathy (principal); R11.2 Nausea with vomiting, unspecified
CPT/HCPCS: 36415; 80053; 82150; 83690; 85025

== ENCOUNTER → 2022-03-25 15:05 | Outpatient (CLI) | payer OTHER, SELFPAY ==
--- NOTE | 2022-03-25 15:10 | DI.MG.S_ITS ---
BILATERAL DIGITAL SCREENING MAMMOGRAM 3D/2D WITH CAD: 03/25/2022 CLINICAL: Routine screening. Family history of breast cancer. Comparison is made to exams dated: 08/09/2020 mammogram, 07/11/2019 mammogram, and 06/04/2018 mammogram - [facility]. There are scattered fibroglandular elements in both breasts. Current study was also evaluated with a Computer Aided Detection (CAD) system. No significant masses, calcifications, or other findings are seen in either breast. There has been no significant interval change. IMPRESSION: NEGATIVE There is no mammographic evidence of malignancy. A 1 year screening mammogram is recommended. Based on the Tyrer Cuzick model (a risk assessment model) the patient's lifetime risk is 5.4% and her 10 year risk is 4.0%. According to the ACR, ACS, and NCCN guidelines, an annual breast MRI exam along with mammogram is recommended if the patient's lifetime risk is 20% or greater. This exam was interpreted at Station ID: [id number]. NOTE: For mammograms, a report in lay terms will be sent to the patient. Approximately 15% of breast malignancies will not be visualized mammographically. In the management of a palpable breast mass, a negative mammogram must not discourage biopsy of a clinically suspicious lesion. Electronically Signed By: Chidi Stevenson M.D., jr/ruth:03/26/2022 09:13:57 letter sent: Normal Exam ACR BI-RADS Category 1: Negative 3341F
== END ==
PROVIDERS: PCP Family Medicine; Referring Provider Family Medicine; Visit Provider Family Medicine
DX: Z12.31 Encounter for screening mammogram for malignant neoplasm of breast (principal); Z80.3 Family history of malignant neoplasm of breast; Z13.820 Encounter for screening for osteoporosis; M85.851 Other specified disorders of bone density and structure, right thigh; M85.852 Other specified disorders of bone density and structure, left thigh; Z78.0 Asymptomatic menopausal state; Z90.710 Acquired absence of both cervix and uterus
CPT/HCPCS: 77063; 77067; 77080

== ENCOUNTER → 2022-07-09 11:33 | Outpatient (CLI) | payer OTHER, SELFPAY ==
[2022-07-09 12:27] LABS: Hemoglobin A1C% w Est Avg Glu 6.3 % (4.0-6.0)
[2022-07-09 12:40] LABS: Alanine Aminotransferase 29 IU/L (<35); Albumin 4.6 g/dL (3.5-5.0); Albumin Globulin Ratio 1.7 (1.0-2.8); Alkaline Phosphatase 67 U/L (38-126); Aspartate Aminotransferase 25 IU/L (14-36); BUN Creatinine Ratio 21.9 (6-22); Bilirubin Total 0.2 mg/dL (0.2-1.3); Blood Urea Nitrogen 14 mg/dL (7-17); Calcium 9.7 mg/dL (8.4-10.2); Carbon Dioxide 27 mmol/L (22-32); Chloride 101 mmol/L (98-107); Cholesterol 187 mg/dL (140-199); Estimated Glomerular Filt Rate > 60 mL/min (>60); Globulin 2.7 g/dL (1.7-4.1); Glucose 84 mg/dL (80-110); HDL Cholesterol 78 mg/dL (40-60); HEMOLYSIS < 15 (0-50); LDL Cholesterol Calculated 83 mg/dL (<100); Potassium 4.3 mmol/L (3.4-5.1); Sodium 137 mmol/L (137-145); Total Protein 7.3 g/dL (6.3-8.2); Triglycerides 129 mg/dL (35-150)
[2022-07-09 12:51] LABS: LDL Cholesterol Direct 80 mg/dL (<100)
[2022-07-11 16:42] LABS: Amylase 99 U/L (30-110); Lipase 145 U/L (23-300)
== END ==
PROVIDERS: PCP Family Medicine; Referring Provider Family Medicine; Visit Provider Family Medicine
DX: E11.43 Type 2 diabetes mellitus with diabetic autonomic (poly)neuropathy (principal); E78.5 Hyperlipidemia, unspecified; I10 Essential (primary) hypertension
CPT/HCPCS: 36415; 80053; 80061; 82150; 83036; 83690; 83721

== ENCOUNTER → 2022-10-03 08:59 | Outpatient (CLI) | payer OTHER, SELFPAY ==
[2022-10-03 09:53] LABS: Hemoglobin A1C% w Est Avg Glu 6.6 % (4.0-6.0)
[2022-10-03 09:58] LABS: Alanine Aminotransferase 25 IU/L (<35); Albumin 4.5 g/dL (3.5-5.0); Albumin Globulin Ratio 1.7 (1.0-2.8); Alkaline Phosphatase 76 U/L (38-126); Aspartate Aminotransferase 20 IU/L (14-36); BUN Creatinine Ratio 21.4 (6-22); Bilirubin Total 0.5 mg/dL (0.2-1.3); Blood Urea Nitrogen 15 mg/dL (7-17); Calcium 9.7 mg/dL (8.4-10.2); Carbon Dioxide 25 mmol/L (22-32); Chloride 100 mmol/L (98-107); Cholesterol 176 mg/dL (140-199); Estimated Glomerular Filt Rate > 60 mL/min (>60); Globulin 2.6 g/dL (1.7-4.1); Glucose 143 mg/dL (80-110); HDL Cholesterol 81 mg/dL (40-60); HEMOLYSIS < 15 (0-50); LDL Cholesterol Calculated 77 mg/dL (<100); Potassium 4.5 mmol/L (3.4-5.1); Sodium 136 mmol/L (137-145); Total Protein 7.1 g/dL (6.3-8.2); Triglycerides 90 mg/dL (35-150)
== END ==
PROVIDERS: PCP Family Medicine; Referring Provider Family Medicine; Visit Provider Family Medicine
DX: E11.43 Type 2 diabetes mellitus with diabetic autonomic (poly)neuropathy (principal); E78.5 Hyperlipidemia, unspecified; I10 Essential (primary) hypertension
CPT/HCPCS: 36415; 80053; 80061; 83036

== ENCOUNTER → 2023-07-14 09:15 | Outpatient (CLI) | payer OTHER, SELFPAY ==
--- NOTE | 2023-07-14 | DI.MG.S_ITS ---
BILATERAL DIGITAL SCREENING MAMMOGRAM 3D/2D WITH CAD: 07/14/2023 CLINICAL: Routine screening. Family history of breast cancer. Comparison is made to exams dated: 03/25/2022 mammogram, 08/09/2020 mammogram, and 07/11/2019 mammogram - [facility]. There are scattered areas of fibroglandular density in both breasts (category b / 25%-50% glandular tissue). Current study was also evaluated with a Computer Aided Detection (CAD) system. No significant masses, calcifications, or other findings are seen in either breast. There has been no significant interval change. IMPRESSION: NEGATIVE There is no mammographic evidence of malignancy. A 1 year screening mammogram is recommended. Based on the Tyrer Cuzick model (a risk assessment model) the patient's lifetime risk is 5.0% and her 10 year risk is 4.1%. According to the ACR, ACS, and NCCN guidelines, an annual breast MRI exam along with mammogram is recommended if the patient's lifetime risk is 20% or greater. This exam was interpreted at Station ID: [id number]. NOTE: For mammograms, a report in lay terms will be sent to the patient. Approximately 15% of breast malignancies will not be visualized mammographically. In the management of a palpable breast mass, a negative mammogram must not discourage biopsy of a clinically suspicious lesion. Electronically Signed By: Edil thrasher/ruth:07/14/2023 13:19:33 letter sent: Normal Exam ACR BI-RADS Category 1: Negative [id number]
== END ==
PROVIDERS: PCP Family Medicine; Referring Provider Family Medicine; Visit Provider Family Medicine
DX: Z12.31 Encounter for screening mammogram for malignant neoplasm of breast (principal); Z80.3 Family history of malignant neoplasm of breast
CPT/HCPCS: 77063; 77067

== ENCOUNTER 2023-09-26 14:05 | Emergency (ER) | payer OTHER, SELFPAY ==
[2023-09-26 14:15] VITALS: BP 166/75; PULSE 88; RESP 18; TEMP 36.6; O2SAT 97; BMI 23.6
--- NOTE | 2023-09-26 14:18 | DI.CT.S_ITS ---
PROCEDURE: CT CERVICAL SPINE WO CON INDICATIONS: fell backwards, not on thinners. lateral neck pain TECHNIQUE: Noncontrast 3 mm thick sections acquired from the skull base to the T4 level. Sagittal and coronal reformats were then constructed. For radiation dose reduction, the following was used: automated exposure control, adjustment of mA and/or kV according to patient size. COMPARISON: [facility], CT, CT HEAD/BRAIN WO CON, 09/26/2023, 14:26. FINDINGS: Image quality: This examination is somewhat limited by quantum mottle artifact. Bones: No fractures or dislocations. Visualized superior ribs are intact. There is at least moderate disc space narrowing seen at C4-C5, C5-C6, and C6-C7. Posteriorly directed endplate osteophytes are seen, which are worst at C6-C7. Soft tissues: Prevertebral soft tissues are normal in thickness. No paravertebral hematomas. No apical pneumothoraces. Focal right maxillary sinus disease can be seen. Prior right-sided antrectomy noted. IMPRESSION: No displaced fracture or traumatic subluxation. Cervical spine degenerative changes are seen, which are worst at the C5-C6 level. Dictated by: Ghassan Hamilton M.D. on 09/26/2023 at 14:14 Approved by: Ghassan Hamilton M.D. on 09/26/2023 at 14:15
--- NOTE | 2023-09-26 14:18 | DI.CT.S_ITS ---
PROCEDURE: CT HEAD/BRAIN WO CON INDICATIONS: fell backwards, not on thinners. lateral neck pain TECHNIQUE: Noncontrast 4.5 mm thick angled axial sections acquired from the foramen magnum to the vertex, with coronal and sagittal reformats. For radiation dose reduction, the following was used: automated exposure control, adjustment of mA and/or kV according to patient size. COMPARISON: [facility], CT, CT CERVICAL SPINE WO CON, 09/26/2023, 14:26. [facility], CT, CT HEAD/BRAIN WO CON, 04/15/2020, 10:38. FINDINGS: Image quality: Mild streak artifact can be seen through the skull base. CSF spaces: Basal cisterns are patent. No extra-axial fluid collections. The ventricles are symmetric in size and shape. Brain: No intracranial bleeds or masses. There is cerebral volume loss for age, with resultant ventricular and sulcal prominence. There are periventricular and deep white matter chronic small vessel ischemic changes. There is intracranial internal carotid artery atherosclerosis. Skull and face: Scalp hematoma can be seen posteriorly and on the left. No associated calvarial fracture is seen. Calvarium and visualized facial bones appear intact, without suspicious lesions. Sinuses: Focal moderate mucosal thickening can be seen within the right maxillary sinus. Prior right-sided antrectomy can be seen. IMPRESSION: There is a scalp hematoma seen posteriorly and on the left, without an associated calvarial fracture. No acute intracranial hemorrhage is seen. No acute intracranial process is seen. Right maxillary sinus disease, with prior right antrectomy. Dictated by: Ghassan Hamilton M.D. on 09/26/2023 at 14:12 Approved by: Ghassan Hamilton M.D. on 09/26/2023 at 14:13
[2023-09-26 14:31] VITALS: PULSE 86; O2SAT 97
[2023-09-26 14:32] VITALS: BP 169/72; PULSE 85; O2SAT 97
[2023-09-26 15:00] VITALS: BP 140/66; PULSE 80; O2SAT 96
[2023-09-26 15:30] VITALS: BP 142/65; PULSE 77; O2SAT 96
--- NOTE | 2023-09-26 15:41 | ED.HEATRA ---
HPI - Head Injury General Chief complaint: Head Injury Stated complaint: fall, hit back of head, no thinners Time Seen by Provider: 09/26/23 14:29 Source: patient Mode of arrival: Ambulatory History of Present Illness HPI Narrative: Patient is a healthy 73-year-old female who presents today after ground level fall. She reports that she was in the driveway when the dogs ran into her knee she fell backwards landing on her head. She does have a posterior hematoma no loss of consciousness felt a little dizzy no nausea vomiting numbness tingling weakness. She is on aspirin daily but no other anticoagulations. Related Data Home Medications Medication Instructions Recorded Confirmed MULTIVITAMIN (#MULTIPLE VITAMINS) 1 cap PO Q DAY ##0 09/10/11 06/08/21 Metformin Hydrochloride 850 mg PO BID ##0 09/10/11 06/08/21 (#GLUCOPHAGE) VITAMIN B COMPLEX 1 cap PO Q DAY ##0 09/10/11 06/08/21 [COQ10] 1 PO Q DAY ##0 09/10/11 06/08/21 aspirin 81 mg tablet,delayed 81 mg PO QDAY ##0 02/28/13 06/08/21 release Previous Rx's Medication Instructions Recorded Pravastatin Sodium (#PRAVACHOL) 20 mg PO HS ##90 08/13/12 MEPERIDINE HYDROCHLORIDE (DEMEROL) 50 mg PO Q4HP ##14 03/25/13 Allergies Allergy/AdvReac Type Severity Reaction Status Date / Time codeine [CODEINE] AdvReac Mild HEADACHES Unverified 06/08/21 12:04 Patient History Social History Smoking Status: Never smoker Smoking Status: Never smoker alcohol intake frequency: 0-2 drinks per day Substance Use Type: does not use Exam Initial Vital Signs Initial Vital Signs: Vital Signs Temperature 97.8 F 09/26/23 14:15 Pulse Rate 88 09/26/23 14:15 Respiratory Rate 18 09/26/23 14:15 Blood Pressure 166/75 H 09/26/23 14:15 Pulse Oximetry 97 09/26/23 14:15 Oxygen Delivery Method Room Air 09/26/23 14:15 GENERAL: Alert pleasant 73-year-old female HEENT: Head posterior scalp hematoma,EOMI, pupils reactive, face symmetric, moist mucous membranes NECK: No vertebral tenderness no step-off CARDIOVASCULAR: Regular rate and rhythm without murmurs, rubs or gallops. RESPIRATORY: Breath sounds equal bilaterally, no wheezes rales or rhonchi. BACK: No vertebral tenderness no step-off EXTREMITIES: Normal range of motion, no clubbing or edema. Neurovascularly intact NEUROLOGICAL: Alert and oriented x4.Normal gait and speech. Cranial nerves II through XII grossly intact. SKIN: Warm, dry, no laceration, no petechiae, no rashes or lesions. Course Orders Ordered: ED Orders 09/26/23 14:18 CT cervical spine wo con Stat CT head/brain wo con Stat Vital Signs Vital signs: Vital Signs - 8 hr 09/26/23 14:15 09/26/23 14:31 09/26/23 14:32 Temperature 97.8 F Pulse Rate 88 86 Respiratory Rate 18 Blood Pressure 166/75 H 169/72 H Pulse Oximetry 97 97 Oxygen Delivery Method Room Air 09/26/23 14:32 09/26/23 15:00 09/26/23 15:00 Temperature Pulse Rate 85 80 Respiratory Rate Blood Pressure 140/66 Pulse Oximetry 97 96 Oxygen Delivery Method 09/26/23 15:30 09/26/23 15:30 Temperature Pulse Rate 77 Respiratory Rate Blood Pressure 142/65 H Pulse Oximetry 96 Oxygen Delivery Method MDM - Head Injury Imaging Data CT scan - head: Radiologist's Impression: PROCEDURE: CT HEAD/BRAIN WO CON INDICATIONS: fell backwards, not on thinners. lateral neck pain TECHNIQUE: Noncontrast 4.5 mm thick angled axial sections acquired from the foramen magnum to the vertex, with coronal and sagittal reformats. For radiation dose reduction, the following was used: automated exposure control, adjustment of mA and/or kV according to patient size. COMPARISON: [facility], CT, CT CERVICAL SPINE WO CON, 09/26/2023, 14:26. [facility], CT, CT HEAD/BRAIN WO CON, 04/15/2020, 10:38. FINDINGS: Image quality: Mild streak artifact can be seen through the skull base. CSF spaces: Basal cisterns are patent. No extra-axial fluid collections. The ventricles are symmetric in size and shape. Brain: No intracranial bleeds or masses. There is cerebral volume loss for age, with resultant ventricular and sulcal prominence. There are periventricular and deep white matter chronic small vessel ischemic changes. There is intracranial internal carotid artery atherosclerosis. Skull and face: Scalp hematoma can be seen posteriorly and on the left. No associated calvarial fracture is seen. Calvarium and visualized facial bones appear intact, without suspicious lesions. Sinuses: Focal moderate mucosal thickening can be seen within the right maxillary sinus. Prior right-sided antrectomy can be seen. IMPRESSION: There is a scalp hematoma seen posteriorly and on the left, without an associated calvarial fracture. No acute intracranial hemorrhage is seen. No acute intracranial process is seen. Right maxillary sinus disease, with prior right antrectomy. Dictated by: Ghassan Hamilton M.D. on 09/26/2023 at 14:12 CT - cervical spine: Radiologist's Impression: PROCEDURE: CT CERVICAL SPINE WO CON INDICATIONS: fell backwards, not on thinners. lateral neck pain TECHNIQUE: Noncontrast 3 mm thick sections acquired from the skull base to the T4 level. Sagittal and coronal reformats were then constructed. For radiation dose reduction, the following was used: automated exposure control, adjustment of mA and/or kV according to patient size. COMPARISON: [facility], CT, CT HEAD/BRAIN WO CON, 09/26/2023, 14:26. FINDINGS: Image quality: This examination is somewhat limited by quantum mottle artifact. Bones: No fractures or dislocations. Visualized superior ribs are intact. There is at least moderate disc space narrowing seen at C4-C5, C5-C6, and C6-C7. Posteriorly directed endplate osteophytes are seen, which are worst at C6-C7. Soft tissues: Prevertebral soft tissues are normal in thickness. No paravertebral hematomas. No apical pneumothoraces. Focal right maxillary sinus disease can be seen. Prior right-sided antrectomy noted. IMPRESSION: No displaced fracture or traumatic subluxation. Cervical spine degenerative changes are seen, which are worst at the C5-C6 level. Dictated by: Ghassan Hamilton M.D. on 09/26/2023 at 14:14 [facility] Narrative Medical decision making narrative: Patient well-appearing 73-year-old female who presents after ground level fall she takes aspirin daily she has a posterior hematoma. Imaging has been reviewed CT head and CT cervical spine without any acute abnormality. Supportive care only. No other complaints Discharge Plan Departure Patient Disposition: Home Clinical Impression: Closed head injury Instructions: Concussion Activity Restrictions/Additional Instructions: *You have been diagnosed with closed head injury *What to do: At this time light activity is encouraged. Recommend ice on your head may use heating pad on your neck. Expect to be sore for the next couple of days. May experience mild headache and some nausea. *Continue to take medications as directed Tylenol or Motrin as needed for pain *Follow up with your primary care provider in 2-3 days or call [phone] *Return to ER if you should have worsening headache numbness tingling weakness persistent vomiting or any new, worsening or concerning symptoms Prescriptions: No Action Metformin Hydrochloride (#GLUCOPHAGE) 850 mg PO BID Qty: 0 MULTIVITAMIN (#MULTIPLE VITAMINS) 1 cap PO Q DAY Qty: 0 VITAMIN B COMPLEX 1 cap PO Q DAY Qty: 0 [COQ10] 1 PO Q DAY Qty: 0 Pravastatin Sodium (#PRAVACHOL) 20 mg PO HS Qty: 90 3RF aspirin 81 MG tablet,delayed release (DR/EC) 81 mg PO QDAY Qty: 0 MEPERIDINE HYDROCHLORIDE (DEMEROL) 50 mg PO Q4HP Qty: 14 0RF Referrals: Desiree Mcghee MD [Primary Care Provider] - Stand Alone Forms: Patient Portal/API
== END 2023-09-26 15:56 | disposition home or self-care (01) ==
PROVIDERS: Emergency Provider Emergency Medicine; PCP Family Medicine
DX: S09.90XA Unspecified injury of head, initial encounter (principal); M54.2 Cervicalgia; W18.30XA Fall on same level, unspecified, initial encounter; Z79.82 Long term (current) use of aspirin
CPT/HCPCS: 70450; 72125; 99283; 99284

== ENCOUNTER → 2024-03-29 10:46 | Outpatient (CLI) | payer OTHER, SELFPAY ==
--- NOTE | 2024-03-29 10:47 | DI.RAD.S_ITS ---
PROCEDURE: XR DEXA AXIAL SKELETON INDICATIONS: OSTEOPOROSIS SCREENING COMPARISON: [facility], CR, XR DEXA AXIAL SKELETON, 03/25/2022, 15:47. [facility], CR, XR DEXA AXIAL SKELETON, 01/20/2020, 15:08. FINDINGS: Lumbar Spine: Bone mineral density 0.946 g/cm2, T score -0.9, previously -0.7. Left Hip: Bone mineral density 0.798 g/cm2, T score -1.2, previously -1.3. Left Femoral Neck: Bone mineral density 0.660 g/cm2, T score -1.7, previously -1.4. Right Hip: Bone mineral density 0.767 g/cm2, T score -1.4, previously -1.2. Right Femoral Neck: Bone mineral density 0.658 g/cm2, T score -1.7, unchanged. Fracture Risk Calculation (when applicable): 10-year fracture risk of a major osteoporotic fracture of 12 percent and of a hip fracture 2.6 percent. (T score greater or equal to -1.0 to: NORMAL) (T score from -1.1 to -2.4: OSTEOPENIA) (T score less than or equal to -2.5: OSTEOPOROSIS) IMPRESSION: Osteopenia. Follow-up guidelines as follows: Osteoporosis: Consider a repeat DEXA and Vertebral Fracture Assessment (VFA) exam in 2 years or sooner if medically necessary, to reassess this patient's status. Osteopenia: Consider a repeat DEXA in 2-3 years to reassess this patient's status, or if there is a new clinical indication. Normal: Consider a repeat DEXA in 5 years or sooner, or if there is a new clinical indication. All treatment decisions require clinical judgment and consideration of individual patient factors, including patient preferences, comorbidities, previous drug use, risk factors not captured in the FRAX model (e.g., frailty, falls, vitamin D deficiency, increased bone turnover, interval significant decline in bone density ) and possible under- or over-estimation of fracture risk by FRAX. In addition, the NOF Guide recommends that FDA-approved medical therapies be considered in postmenopausal women and men age >= 50 years with a: * Hip or vertebral (clinical or morphometric) fracture * T-score of <=-2.5 at the spine or hip * Ten-year fracture probability by FRAX of >= 3% for hip fracture or >=20% for major osteoporotic fracture. People with diagnosed cases of osteoporosis or at high risk for fracture should have regular bone mineral density tests. For patients eligible for Medicare, routine testing is allowed once every 2 years. The testing frequency can be increased to one year for patients who have rapidly progressing disease, those who are receiving or discontinuing medical therapy to restore bone mass, or have additional risk factors. Dictated by: Yomi Marie M.D. on 03/29/2024 at 15:13 Approved by: Yomi Marie M.D. on 03/29/2024 at 15:15
== END ==
PROVIDERS: PCP Family Medicine; Referring Provider Family Medicine; Visit Provider Family Medicine
DX: M85.89 Other specified disorders of bone density and structure, multiple sites (principal)
CPT/HCPCS: 77080

== ENCOUNTER → 2024-08-05 09:45 | Outpatient (CLI) | payer OTHER, SELFPAY ==
--- NOTE | 2024-08-05 09:47 | DI.MG.S_ITS ---
BILATERAL DIGITAL SCREENING MAMMOGRAM 3D/2D WITH CAD: 08/05/2024 CLINICAL: Routine screening. Family history of breast cancer. Comparison is made to exams dated: 07/14/2023 mammogram, 03/25/2022 mammogram, 08/09/2020 mammogram, 07/11/2019 mammogram, and 06/04/2018 mammogram - [facility]. There are scattered areas of fibroglandular density (category b / 25%-50% glandular tissue). Current study was also evaluated with a Computer Aided Detection (CAD) system. There are benign post operative findings in both breasts. No significant masses, calcifications, or other findings are seen in either breast. There has been no significant interval change. IMPRESSION: BENIGN There is no mammographic evidence of malignancy. A 1 year screening mammogram is recommended. Based on the Tyrer Cuzick model (a risk assessment model) the patient's lifetime risk is 4.7% and her 10 year risk is 4.2%. According to the ACR, ACS, and NCCN guidelines, an annual breast MRI exam along with mammogram is recommended if the patient's lifetime risk is 20% or greater. This exam was interpreted at Station ID: [id number]. NOTE: For mammograms, a report in lay terms will be sent to the patient. Approximately 15% of breast malignancies will not be visualized mammographically. In the management of a palpable breast mass, a negative mammogram must not discourage biopsy of a clinically suspicious lesion. Electronically Signed By: Mary Kay Gamboa M.D., Ph.D. kong/ruth:08/05/2024 15:55:16 letter sent: Normal Exam ACR BI-RADS Category 2: Benign
== END ==
PROVIDERS: PCP Family Medicine; Referring Provider Family Medicine; Visit Provider Family Medicine
DX: Z12.31 Encounter for screening mammogram for malignant neoplasm of breast (principal); Z80.3 Family history of malignant neoplasm of breast
CPT/HCPCS: 77063; 77067